=== PATIENT | male | born 1950 | race Caucasian/White ===

== ENCOUNTER 2017-12-20 01:56 | Inpatient (IN) | payer MEDICARE, OTHER ==
[2017-12-20 02:33] LABS: ADD MAN DIFF? NO
[2017-12-20 02:34] LABS: WHITE BLOOD COUNT 10.4 10^3/ul (4.8-10.8)
[2017-12-20 02:34] LABS: ABNORMAL IP MESSAGE 1; BASOPHILS % 0.2 % (0.0-2.0); HEMATOCRIT 46.1 % (42.0-52.0); HEMOGLOBIN 15.6 g/dl (14.0-18.0); LYMPHOCYTES # 0.5 10^3/ul (0.8-2.9); LYMPHOCYTES % 4.6 % (15.0-51.0); MEAN CORPUSCULAR HEMOGLOBIN 30.6 pg (29.0-33.0); MEAN CORPUSCULAR HGB CONC 33.8 g/dl (32.0-37.0); MEAN CORPUSCULAR VOLUME 90.6 fl (82.0-101.0); MEAN PLATELET VOLUME 10.4 fl (7.4-10.4); MONOCYTES % 9.3 % (0.0-11.0); NEUTROPHIL # 8.9 10^3/ul (1.6-7.5); NEUTROPHILS % 85.7 % (39.0-77.0); PLATELET COUNT 174 10^3/UL (140-415); POSITIVE DIFF @See below; RED BLOOD COUNT 5.09 10^6/ul (4.70-6.10); RED CELL DISTRIBUTION WIDTH 14.4 % (11.5-14.5)
[2017-12-20] MEDS: SOD CHLORIDE 0.9% 1,000 ML IV (02:45)
[2017-12-20] MEDS: ONDANSETRON 4 MG INJ IV (02:45)
[2017-12-20] MEDS: morphine 4 MG/ML VIAL IV (02:45)
[2017-12-20 02:54] LABS: INR 0.95; PARTIAL THROMBOPLASTIN TIME 28.7 Sec (23.0-35.0); PROTIME 12.8 Sec (11.9-14.9)
[2017-12-20 03:15] LABS: ALANINE AMINOTRANSFERASE 48 IU/L (13-69); ALBUMIN 4.2 g/dl (3.3-4.9); ALBUMIN/GLOBULIN RATIO 1.68; ALKALINE PHOSPHATASE 137 IU/L (42-121); ANION GAP 16 (5-13); ASPARTATE AMINO TRANSFERASE 42 IU/L (15-46); BILIRUBIN,INDIRECT 0.7 mg/dl (0-1.1); BILIRUBIN,TOTAL 0.7 mg/dl (0.2-1.3); BLOOD UREA NITROGEN 50 mg/dl (7-20); CALCIUM 12.3 mg/dl (8.4-10.2); CARBON DIOXIDE 25 mmol/L (21-31); CHLORIDE 97 mmol/L (97-110); CREATININE 1.54 mg/dl (0.61-1.24); Estimated GFR 45 mL/min (>60); GLUCOSE 117 mg/dl (70-220); LIPASE 66 U/L (23-300); POTASSIUM 4.1 mmol/L (3.5-5.1); SODIUM 138 mmol/L (135-144); TOTAL PROTEIN 6.7 g/dl (6.1-8.1)
[2017-12-20 03:27] LABS: TROPONIN-I < 0.012 ng/ml (0.000-0.120)
[2017-12-20] MEDS: IOHEXOL 300MG/ML 150 ML BTL (03:51)
[2017-12-20] MEDS: SOD CHLORIDE 0.9% 100 ML (03:51)
[2017-12-20] MEDS: FAMOTIDINE 20 MG INJ IV (04:46)
[2017-12-20] MEDS ORDERED: ONDANSETRON 4 MG INJ IV ×2 (05:30→07:30)
[2017-12-20] MEDS ORDERED: ACETAMINOPHEN 325 MG TAB PO (05:30)
[2017-12-20] MEDS ORDERED: morphine 2 MG INJ IV (07:30)
[2017-12-20] MEDS ORDERED: NACL 0.9% 3 ML SYG IV (07:30)
[2017-12-20] MEDS: ASPIRIN 81 MG TAB PO (08:52)
[2017-12-20] MEDS: DOCUSATE SODIUM 250 MG CAP PO (08:53)
[2017-12-20] MEDS: CHOLECALCIFEROL 400 UNITS TAB PO (08:53)
[2017-12-20] MEDS: LOSARTAN 50 MG TAB PO (08:53)
[2017-12-20] MEDS: SENNA TAB PO (08:54)
[2017-12-20] MEDS: AMLODIPINE 5 MG TAB PO (08:54)
[2017-12-20] MEDS: DEXTROSE 5%-0.45% NACL 1,000 ML IV ×2 (08:54→17:58)
[2017-12-20] MEDS: ALLOPURINOL 100 MG TAB PO (08:54)
[2017-12-20] MEDS ORDERED: HEPARIN 5,000 UNIT/0.5 ML VIAL SC (09:00)
[2017-12-20 09:07] LABS: CREATINE KINASE 88 IU/L (23-200)
[2017-12-20 09:18] LABS: CK-MB 3.51 ng/ml (0.0-2.4); TROPONIN-I < 0.012 ng/ml (0.000-0.120)
[2017-12-20] MEDS: PANTOPRAZOLE 40 MG INJ IV (11:55)
[2017-12-20] MEDS ORDERED: HEPARIN 5,000 UNIT/0.5 ML VIAL ×2 (11:56→20:11)
[2017-12-20] MEDS: HEPARIN 5,000 UNIT/1 ML VIAL SC ×2 (12:01→21:23)
[2017-12-20 14:24] LABS: CREATINE KINASE 86 IU/L (23-200)
[2017-12-20 14:38] LABS: CK INDEX 3.5; CK-MB 2.98 ng/ml (0.0-2.4); TROPONIN-I < 0.012 ng/ml (0.000-0.120)
[2017-12-20 14:57] LABS: CARCINOEMBRYONIC ANTIGEN 0.8 ng/ml (0.0-5.0)
[2017-12-20] MEDS: LORAZEPAM 2 MG INJ IV (18:30)
[2017-12-20] MEDS: ATORVASTATIN 10 MG TAB PO (21:11)
[2017-12-20] MEDS: TAMSULOSIN (SR) 0.4 MG CAP PO (21:12)
[2017-12-21] MEDS: IMATINIB 400 MG TAB PO ×2 (00:47→09:09)
[2017-12-21] MEDS: DEXTROSE 5%-0.45% NACL 1,000 ML IV ×2 (04:00→13:56)
[2017-12-21] MEDS: PANTOPRAZOLE 40 MG INJ IV (05:31)
[2017-12-21 06:16] LABS: HEMATOCRIT 37.4 % (42.0-52.0); HEMOGLOBIN 12.5 g/dl (14.0-18.0); MEAN CORPUSCULAR HGB CONC 33.4 g/dl (32.0-37.0); MEAN CORPUSCULAR VOLUME 92.8 fl (82.0-101.0); MEAN PLATELET VOLUME 11.3 fl (7.4-10.4); PLATELET COUNT 116 10^3/UL (140-415); POSITIVE DIFF @See below; RED BLOOD COUNT 4.03 10^6/ul (4.70-6.10); RED CELL DISTRIBUTION WIDTH 14.6 % (11.5-14.5)
[2017-12-21 06:16] LABS: WHITE BLOOD COUNT 5.6 10^3/ul (4.8-10.8)
[2017-12-21 06:18] LABS: ADD MAN DIFF? YES
[2017-12-21 06:37] LABS: ALANINE AMINOTRANSFERASE 32 IU/L (13-69); ALBUMIN/GLOBULIN RATIO 1.25; ALKALINE PHOSPHATASE 90 IU/L (42-121); ANION GAP 7 (5-13); ASPARTATE AMINO TRANSFERASE 23 IU/L (15-46); BILIRUBIN,INDIRECT 0.3 mg/dl (0-1.1); BILIRUBIN,TOTAL 0.3 mg/dl (0.2-1.3); BLOOD UREA NITROGEN 51 mg/dl (7-20); CALCIUM 10.9 mg/dl (8.4-10.2); CARBON DIOXIDE 24 mmol/L (21-31); CHLORIDE 104 mmol/L (97-110); CREATININE 1.45 mg/dl (0.61-1.24); Estimated GFR 48 mL/min (>60); GLUCOSE 128 mg/dl (70-220); MAGNESIUM 1.9 mg/dl (1.7-2.5); POTASSIUM 3.9 mmol/L (3.5-5.1); SODIUM 135 mmol/L (135-144); TOTAL PROTEIN 5.4 g/dl (6.1-8.1)
[2017-12-21 07:05] LABS: ANISOCYTOSIS 1+ (0-0); BAND NEUTROPHILS #M 0.1 10^3/ul (0.0-0.6); BAND NEUTROPHILS % (M) 3 % (0-4); LYMPHOCYTES #M 0.5 10^3/ul (0.8-2.9); LYMPHOCYTES % (M) 9 % (15-51); MONOCYTE #M 0.4 10^3/ul (0.3-0.9); MONOCYTES % (M) 8 % (0-11); PLATELET ESTIMATE DECREASED; SEG NEUT #M 4.5 10^3/ul (1.6-7.5); SEGMENTED NEUTROPHILS (M) % 80 % (39-77); SMUDGE%M 5 % (0-0)
[2017-12-21] MEDS ORDERED: HEPARIN 5,000 UNIT/0.5 ML VIAL ×2 (08:53→20:56)
[2017-12-21] MEDS: DOCUSATE SODIUM 250 MG CAP PO (09:00)
[2017-12-21] MEDS: ALLOPURINOL 100 MG TAB PO (09:00)
[2017-12-21] MEDS: SENNA TAB PO (09:00)
[2017-12-21] MEDS: AMLODIPINE 5 MG TAB PO (09:01)
[2017-12-21] MEDS: CHOLECALCIFEROL 400 UNITS TAB PO (09:01)
[2017-12-21] MEDS: HEPARIN 5,000 UNIT/1 ML VIAL SC ×2 (09:10→21:11)
[2017-12-21 09:41] LABS: ADD UMIC NO; UR ASCORBIC ACID NEGATIVE (NEGATIVE); UR BILIRUBIN (Dip) NEGATIVE (NEGATIVE); UR BLOOD (Dip) NEGATIVE (NEGATIVE); UR CLARITY CLEAR (CLEAR); UR COLOR YELLOW (YELLOW); UR GLUCOSE (Dip) NEGATIVE (NEGATIVE); UR KETONES (Dip) NEGATIVE (NEGATIVE); UR LEUKOCYTE ESTERASE (Dip) NEGATIVE Leu/ul (NEGATIVE); UR NITRITE (Dip) NEGATIVE (NEGATIVE); UR SPECIFIC GRAVITY (Dip) 1.031 (1.003-1.030); UR TOTAL PROTEIN (Dip) NEGATIVE (NEGATIVE); UR UROBILINOGEN (Dip) NEGATIVE (NEGATIVE)
[2017-12-21 13:43] LABS: CREATININE,URINE RANDOM 77.27 mg/dl (20-370); PROTEIN/CREAT RATIO 0.18 RATIO
[2017-12-21 13:47] LABS: CREATININE,URINE RANDOM 76.73 mg/dl (20-370)
[2017-12-21 13:47] LABS: SODIUM,URINE RANDOM 17 mmol/L (30-90)
[2017-12-21] MEDS: ATORVASTATIN 10 MG TAB PO (21:04)
[2017-12-21] MEDS: TAMSULOSIN (SR) 0.4 MG CAP PO (21:04)
[2017-12-22] MEDS: DEXTROSE 5%-0.45% NACL 1,000 ML IV ×3 (00:31→19:20)
[2017-12-22 05:46] LABS: ADD MAN DIFF? NO
[2017-12-22 05:58] LABS: BASOPHILS % 0.4 % (0.0-2.0); EOSINOPHILS % 0.8 % (0.0-7.0); HEMATOCRIT 36.7 % (42.0-52.0); HEMOGLOBIN 12.6 g/dl (14.0-18.0); LYMPHOCYTES # 0.7 10^3/ul (0.8-2.9); LYMPHOCYTES % 13.1 % (15.0-51.0); MEAN CORPUSCULAR HEMOGLOBIN 31.7 pg (29.0-33.0); MEAN CORPUSCULAR HGB CONC 34.3 g/dl (32.0-37.0); MEAN CORPUSCULAR VOLUME 92.4 fl (82.0-101.0); MEAN PLATELET VOLUME 10.5 fl (7.4-10.4); MONOCYTE # 0.7 10^3/ul (0.3-0.9); MONOCYTES % 13.3 % (0.0-11.0); NEUTROPHIL # 3.7 10^3/ul (1.6-7.5); NEUTROPHILS % 72.2 % (39.0-77.0); PLATELET COUNT 117 10^3/UL (140-415); POSITIVE DIFF @See below; RED BLOOD COUNT 3.97 10^6/ul (4.70-6.10); RED CELL DISTRIBUTION WIDTH 14.5 % (11.5-14.5)
[2017-12-22 05:58] LABS: WHITE BLOOD COUNT 5.1 10^3/ul (4.8-10.8)
[2017-12-22 06:12] LABS: ALANINE AMINOTRANSFERASE 37 IU/L (13-69); ALBUMIN 2.8 g/dl (3.3-4.9); ALBUMIN/GLOBULIN RATIO 1.16; ALKALINE PHOSPHATASE 87 IU/L (42-121); ANION GAP 4 (5-13); ASPARTATE AMINO TRANSFERASE 33 IU/L (15-46); BILIRUBIN,INDIRECT 0.3 mg/dl (0-1.1); BILIRUBIN,TOTAL 0.3 mg/dl (0.2-1.3); BLOOD UREA NITROGEN 42 mg/dl (7-20); CALCIUM 10.1 mg/dl (8.4-10.2); CARBON DIOXIDE 25 mmol/L (21-31); CHLORIDE 105 mmol/L (97-110); CREATININE 1.52 mg/dl (0.61-1.24); Estimated GFR 46 mL/min (>60); GLUCOSE 142 mg/dl (70-220); POTASSIUM 3.9 mmol/L (3.5-5.1); SODIUM 134 mmol/L (135-144); TOTAL PROTEIN 5.2 g/dl (6.1-8.1)
[2017-12-22] MEDS: PANTOPRAZOLE 40 MG INJ IV ×3 (06:23→18:36)
[2017-12-22] MEDS ORDERED: HEPARIN 5,000 UNIT/0.5 ML VIAL ×2 (09:22→19:51)
[2017-12-22] MEDS: SENNA TAB PO (09:39)
[2017-12-22] MEDS: CHOLECALCIFEROL 400 UNITS TAB PO (09:39)
[2017-12-22] MEDS: ALLOPURINOL 100 MG TAB PO (09:39)
[2017-12-22] MEDS: DOCUSATE SODIUM 250 MG CAP PO (09:39)
[2017-12-22] MEDS: AMLODIPINE 5 MG TAB PO (09:40)
[2017-12-22] MEDS: HEPARIN 5,000 UNIT/1 ML VIAL SC ×2 (09:46→20:23)
[2017-12-22] MEDS: IMATINIB 400 MG TAB PO (09:46)
[2017-12-22 18:17] LABS: PTH CALCIUM 12.4 mg/dL (8.6-10.3)
[2017-12-22] MEDS: SUCRALFATE (100 MG/ML) 10ML CUP PO ×3 (18:36→20:19)
[2017-12-22] MEDS: ATORVASTATIN 10 MG TAB PO (20:19)
[2017-12-22] MEDS: TAMSULOSIN (SR) 0.4 MG CAP PO (20:19)
[2017-12-22] MEDS: HYDROCORTISONE 25 MG SUPP PR (21:10)
[2017-12-23] MEDS: PANTOPRAZOLE 40 MG INJ IV ×2 (04:44→18:03)
[2017-12-23] MEDS: DEXTROSE 5%-0.45% NACL 1,000 ML IV ×2 (04:44→15:20)
[2017-12-23] MEDS ORDERED: HEPARIN 5,000 UNIT/0.5 ML VIAL ×2 (10:23→20:34)
[2017-12-23] MEDS: SUCRALFATE (100 MG/ML) 10ML CUP PO ×4 (10:29→20:49)
[2017-12-23] MEDS: AMLODIPINE 5 MG TAB PO (10:30)
[2017-12-23] MEDS: SENNA TAB PO (10:30)
[2017-12-23] MEDS: CHOLECALCIFEROL 400 UNITS TAB PO (10:31)
[2017-12-23] MEDS: DOCUSATE SODIUM 250 MG CAP PO (10:31)
[2017-12-23] MEDS: ALLOPURINOL 100 MG TAB PO (10:31)
[2017-12-23] MEDS: IMATINIB 400 MG TAB PO (10:33)
[2017-12-23] MEDS: HEPARIN 5,000 UNIT/1 ML VIAL SC ×2 (11:12→20:54)
[2017-12-23 12:21] LABS: IONIZED CALCIUM 1.3 mmol/L (1.1-1.4)
[2017-12-23] MEDS: LACTATED RINGER'S 500 ML IV (14:16)
[2017-12-23] MEDS: DEXAMETHASONE 1 MG TAB PO (20:49)
[2017-12-23] MEDS: TAMSULOSIN (SR) 0.4 MG CAP PO (20:49)
[2017-12-23] MEDS: ATORVASTATIN 10 MG TAB PO (20:49)
[2017-12-24] MEDS: DEXTROSE 5%-0.45% NACL 1,000 ML IV ×2 (01:41→11:20)
[2017-12-24] MEDS: PANTOPRAZOLE 40 MG INJ IV ×2 (05:09→18:20)
[2017-12-24 06:52] LABS: ALANINE AMINOTRANSFERASE 39 IU/L (13-69); ALBUMIN 2.9 g/dl (3.3-4.9); ALBUMIN/GLOBULIN RATIO 1.11; ALKALINE PHOSPHATASE 94 IU/L (42-121); ANION GAP 7 (5-13); ASPARTATE AMINO TRANSFERASE 25 IU/L (15-46); BILIRUBIN,INDIRECT 0.4 mg/dl (0-1.1); BILIRUBIN,TOTAL 0.4 mg/dl (0.2-1.3); BLOOD UREA NITROGEN 26 mg/dl (7-20); CALCIUM 9.3 mg/dl (8.4-10.2); CARBON DIOXIDE 23 mmol/L (21-31); CHLORIDE 107 mmol/L (97-110); Estimated GFR 43 mL/min (>60); GLUCOSE 121 mg/dl (70-220); POTASSIUM 4.6 mmol/L (3.5-5.1); SODIUM 137 mmol/L (135-144); TOTAL PROTEIN 5.5 g/dl (6.1-8.1)
[2017-12-24 07:24] LABS: CANCER ANTIGEN 19-9 31.1 U/ml (0.0-37.0)
[2017-12-24 07:25] LABS: ALPHA FETOPROTEIN 1.77 IU/L (0.00-7.21)
[2017-12-24] MEDS ORDERED: HEPARIN 5,000 UNIT/0.5 ML VIAL (08:30)
[2017-12-24] MEDS: ALLOPURINOL 100 MG TAB PO (08:58)
[2017-12-24] MEDS: DOCUSATE SODIUM 250 MG CAP PO (08:58)
[2017-12-24] MEDS: CHOLECALCIFEROL 400 UNITS TAB PO (08:58)
[2017-12-24] MEDS: SENNA TAB PO (08:59)
[2017-12-24] MEDS: AMLODIPINE 5 MG TAB PO (08:59)
[2017-12-24] MEDS: SUCRALFATE (100 MG/ML) 10ML CUP PO ×3 (09:02→18:20)
[2017-12-24] MEDS: IMATINIB 400 MG TAB PO (09:13)
[2017-12-24] MEDS: HEPARIN 5,000 UNIT/1 ML VIAL SC (09:14)
[2017-12-24] MEDS ORDERED: morphine LIQ (10 MG/5 ML) CUP PO (16:15)
[2017-12-25 10:06] LABS: PTH INTACT 4 pg/mL (14-64)
== END 2017-12-24 18:58 | disposition home or self-care (01) | DRG 374 ==
LOC: E/R 01:56 → 6WM 05:25
PROC: 3E03305 Introduction of Other Antineoplastic into Peripheral Vein, Percutaneous Approach (ICD-10-PCS; principal; 2017-12-21 16:20)
PROC: 0DB58ZX Excision of Esophagus, Via Natural or Artificial Opening Endoscopic, Diagnostic (ICD-10-PCS; 2017-12-21 16:20)
PROC: 0DB68ZX Excision of Stomach, Via Natural or Artificial Opening Endoscopic, Diagnostic (ICD-10-PCS; 2017-12-21 16:20)
PROC: 0DBA8ZX Excision of Jejunum, Via Natural or Artificial Opening Endoscopic, Diagnostic (ICD-10-PCS; 2017-12-21 16:20)
DX: C16.9 Malignant neoplasm of stomach, unspecified (principal); E43 Unspecified severe protein-calorie malnutrition; C78.7 Secondary malignant neoplasm of liver and intrahepatic bile duct; N17.9 Acute kidney failure, unspecified; C78.6 Secondary malignant neoplasm of retroperitoneum and peritoneum; E83.52 Hypercalcemia; E86.0 Dehydration; N40.0 Benign prostatic hyperplasia without lower urinary tract symptoms; I10 Essential (primary) hypertension; I25.10 Atherosclerotic heart disease of native coronary artery without angina pectoris; K21.0 Gastro-esophageal reflux disease with esophagitis; F17.210 Nicotine dependence, cigarettes, uncomplicated; Z68.21 Body mass index [BMI] 21.0-21.9, adult; Z95.5 Presence of coronary angioplasty implant and graft; Z90.49 Acquired absence of other specified parts of digestive tract
CPT/HCPCS: 36415; 71045; 71275; 74177; 78306; 80053; 81003; 82105; 82306; 82330; 82378; 82533; 82550; 82553; 82570; 82652; 83690; 83735; 83970; 84155; 84300; 84484; 85025; 85610; 85730; 86301; 88305; 88312; 88313; 89190; 93005; 96374; 96375; 99285-25; A9503